=== PATIENT | male | born 2000 | race Hispanic/Latino ===

== ENCOUNTER 2021-10-28 09:50 | Emergency (ER) | payer OTHER, SELFPAY ==
[2021-10-28 10:00] VITALS: BP 124/57; PULSE 68; RESP 18; TEMP 36.2; O2SAT 99; BMI 28.2
--- NOTE | 2021-10-28 10:33 | ED.GENADULT ---
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 He states that he is having issues with both of his ears but right is worse than the left. He did try some peroxide over the past 24 hours. He can hear fine out of his left ear but his right ear is muffled. Has had issues with cerumen impaction in the past. Related Data Previous Rx's Medication Instructions Recorded carbamide peroxide 6.5 % ear drops 3 drp EAR-BOTH BID 4 Days #15 ml 10/28/21 (Debrox) Allergies Allergy/AdvReac Type Severity Reaction Status Date / Time No Known Drug Allergies Allergy Verified 10/28/21 10:03 Review of Systems ENT Ears, Nose, Mouth, and Throat: Reports system reviewed and no additional complaints, except as documented and Reports as per HPI Respiratory Respiratory: Reports as per HPI and Reports system reviewed and no additional complaints, except as documented Integumentary/Breasts Skin/Breast: Reports system reviewed and no additional complaints, except as documented Hematologic/Lymphatic On Anticoagulants: No Patient History Medical History Cerumen impaction Social History Smoking Status: Never smoker Smoking Status: Never smoker alcohol intake frequency: 0-2 drinks per day Substance Use Type: does not use Exam Initial Vital Signs Initial Vital Signs: Vital Signs Temperature 97.2 F L 10/28/21 10:00 Pulse Rate 68 10/28/21 10:00 Respiratory Rate 18 10/28/21 10:00 Blood Pressure 124/57 L 10/28/21 10:00 Pulse Oximetry 99 10/28/21 10:00 HENMT Head: normal to inspection and normocephalic Ears: other (Bilateral cerumen impaction) Face and sinus: normal facial exam Resp Effort & Inspection: normal respiratory effort Cardio Rate: regular rate Skin General: no rashes or lesions noted Neuro General: patient alert, patient awake and moves all extremities Extrem General: normal to inspection Psych Appearance: grossly normal and well kempt Course Vital Signs Vital signs: Vital Signs - 8 hr 10/28/21 10:00 Temperature 97.2 F L Pulse Rate 68 Respiratory Rate 18 Blood Pressure 124/57 L Pulse Oximetry 99 Medical Decision Making MDM Narrative Medical decision making narrative: Attempted to remove some cerumen in the right ear and I was able to remove some of but there was still cerumen very posterior. Unsafe to remove it here in the ER. Will send home with debrox and instructions to follow-up with his medical department to discuss the indications for referral to see ear nose and throat. He did express understanding agreement. Discharge Plan Departure Patient Disposition: Home Clinical Impression: Bilateral impacted cerumen Instructions: Cerumen Impaction Activity Restrictions/Additional Instructions: I recommend that he use the medication as directed. Contact your medical department as you may need a referral to see ear nose and throat. Return to the emergency department for any new symptoms Prescriptions: New Debrox 6.5 % drops 3 drp EAR-BOTH BID 4 Days Qty: 15 0RF
== END 2021-10-28 11:05 | disposition home or self-care (01) ==
PROVIDERS: Emergency Provider Emergency Medicine
DX: H61.23 Impacted cerumen, bilateral (principal)
CPT/HCPCS: 99281

== ENCOUNTER 2021-11-03 16:59 | Emergency (ER) | payer OTHER, SELFPAY ==
[2021-11-03 17:17] VITALS: BP 133/92; PULSE 84; RESP 14; TEMP 36.4; O2SAT 97
== END 2021-11-03 18:51 | disposition left against medical advice (07) ==
PROVIDERS: Emergency Provider Emergency Medicine
DX: H61.20 Impacted cerumen, unspecified ear (principal)
CPT/HCPCS: 99281

== ENCOUNTER 2022-04-12 00:44 | Emergency (ER) | payer OTHER, SELFPAY ==
[2022-04-12 01:11] VITALS: BP 144/81; PULSE 96; RESP 16; TEMP 37.5; O2SAT 98; BMI 30.1
--- NOTE | 2022-04-12 03:23 | ED_ITS ---
HPI - Skin/Abscess/Foreign Bdy General Chief complaint: Skin/Abscess/Foreign Body Stated complaint: ABSCESS ON PUBIC AREA Time Seen by Provider: 04/12/22 03:09 Source: patient Mode of arrival: Ambulatory History of Present Illness HPI narrative: Otherwise healthy 21-year-old young man noted small abscess midline superior portion of pubic air anteriorly and concerned because it was increasing in pain and worried that he may have a sexually transmitted infection. He has had no fevers, no drainage from the wound. He has had no abdominal pain, vomiting, diarrhea or penile discharge. No dysuria or flank pain. Related Data Previous Rx's Medication Instructions Recorded sulfamethoxazole 800 1 tab PO BID #10 tabs 04/12/22 mg-trimethoprim 160 mg tablet (Bactrim DS) Allergies Allergy/AdvReac Type Severity Reaction Status Date / Time No Known Drug Allergies Allergy Verified 10/28/21 10:03 Review of Systems Review of Systems Narrative: Remainder of complete review of systems is otherwise unremarkable except for that included in the HPI. Patient History Medical History Cerumen impaction Social History Smoking Status: Never smoker Smoking Status: Never smoker alcohol intake frequency: 0-2 drinks per day Substance Use Type: does not use Exam Initial Vital Signs Initial Vital Signs: Vital Signs Temperature 99.5 F 04/12/22 01:11 Pulse Rate 96 H 04/12/22 01:11 Respiratory Rate 16 04/12/22 01:11 Blood Pressure 144/81 H 04/12/22 01:11 Pulse Oximetry 98 04/12/22 01:11 Oxygen Delivery Method 04/12/22 01:11 General: Alert appropriate in no acute distress Respiratory: Able to speak in full sentences, no obvious respiratory distress Skin: No obvious rashes, warm and dry Neurologic: Grossly intact no obvious asymmetries or abnormalities Psych: appropriate insight and affect, cooperative Lower abdomen/upper pubic area has a 1 cm x 3 cm area of fluctuance that looks like it is about to spontaneously drain. Using an 18 gauge needle the area is perforated and approximately 5 cc of purulent drainage is returned without complication. A dressing was applied. Course Vital Signs Vital signs: Vital Signs - 8 hr 04/12/22 01:11 Temperature 99.5 F Pulse Rate 96 H Respiratory Rate 16 Blood Pressure 144/81 H Pulse Oximetry 98 Oxygen Delivery Method Room Air MDM - Skin/Abscess/Foreign Bdy MDM Narrative Medical decision making narrative: Small perifollicular abscess over the upper pubic area/mons. Minor amount of discharge and still some inferior induration. The drainage was sent for culture and Gram stain. He is placed on 5 days of Septra and reassured that he does not have a sexually transmitted infection but does need to continue using condoms. Questions are answered he is safe for home discharge Discharge Plan Departure Patient Disposition: Home Clinical Impression: Abscess of skin or subcutaneous tissue Instructions: DI for Skin Abscess Activity Restrictions/Additional Instructions: Thank you for coming in today This is a small abscess that developed around the pubic care. This is not a se xually transmitted infection. We were able to get the majority of the pus out in the emergency department but there is still a bit of swelling. I do want you to complete 5 additional days of antibiotics. I have given you a prescription that will need to be filled tomorrow. If there is more drainage from the area that is okay. If you notice increasing redness, pain or new findings you do need to return to the ER. Prescriptions: New sulfamethoxazole-trimethoprim [Bactrim DS] 800-160 mg tablet 1 tab PO BID Qty: 10 0RF
--- NOTE | 2022-04-12 03:25 | PC.NURSE ---
abscess evaluated and culture obtained per Dr Ball
== END 2022-04-12 03:45 | disposition home or self-care (01) ==
PROVIDERS: Emergency Provider Emergency Medicine
DX: L02.818 Cutaneous abscess of other sites (principal)
CPT/HCPCS: 87070; 87075; 87205; 99281; 99282

== ENCOUNTER 2022-05-20 22:36 | Emergency (ER) | payer OTHER, SELFPAY ==
[2022-05-20 22:37] VITALS: BP 131/68; PULSE 94; RESP 18; TEMP 36.5; O2SAT 97; BMI 29.9
== END 2022-05-21 00:03 | disposition left against medical advice (07) ==
PROVIDERS: Emergency Provider Emergency Medicine
CPT/HCPCS: 99281

== ENCOUNTER 2022-06-16 20:25 | Emergency (ER) | payer OTHER, SELFPAY ==
[2022-06-16 20:29] VITALS: BP 143/65; PULSE 90; RESP 18; TEMP 36.6; O2SAT 97; BMI 30.1
--- NOTE | 2022-06-16 23:10 | PC.NURSE ---
Reports big toenail has been ingrown for about two weeks and third toe is now showing the same signs.
[2022-06-16] MEDS: HYDROCODONE/ACET 5/325 PREPACK 1 BOTTLE MISC (23:54)
[2022-06-16 23:59] VITALS: BP 137/67; PULSE 95; RESP 18; O2SAT 96
--- NOTE | 2022-06-17 03:57 | ED_ITS ---
HPI - Extremity Problem General Chief complaint: Extremity Problem,Nontraumatic Stated complaint: has 2 ingrown toenails Time Seen by Provider: 06/16/22 23:13 Source: patient Mode of arrival: Ambulatory History of Present Illness HPI Narrative: 21-year-old male nonsmoker with no significant or chronic medical history presents with a chief complaint of a painful right great toe and concern for an ingrown toenail. He denies any systemic complaints such as fever chills nor nausea or vomiting. Denies any traumatic injury. He denies any history of the same. He states that he has been having some increasing redness and pain at the medial edge of his right great toe for the past few weeks and is concerned because he is flying to the [facility] for a music festival in a few hours and wanted to get it looked at. His pain increases with walking and with palpation. He has taken no medications in performed no interventions thus far Related Data Previous Rx's Medication Instructions Recorded sulfamethoxazole 800 1 tab PO BID #10 tabs 04/12/22 mg-trimethoprim 160 mg tablet (Bactrim DS) Allergies Allergy/AdvReac Type Severity Reaction Status Date / Time No Known Drug Allergies Allergy Verified 10/28/21 10:03 Review of Systems Review of Systems Narrative: GENERAL: Denies chills, fatigue, malaise, fever, sweats. HEENT: Denies sinus pain, ear pain, sore throat, difficulty swallowing, dizziness. RESPIRATORY: Denies dyspnea, cough, wheezing, hemoptysis, sputum. CARDIOVASCULAR: Denies chest pain, palpitations, orthopnea, edema, GASTROINTESTINAL: Denies nausea, vomiting, abdominal pain, diarrhea, constipation, melena. : Denies dysuria, frequency, incontinence, hematuria, urinary retention. MUSCULOSKELETAL: See HPI SKIN: Denies rash, skin lesions, or other NEUROLOGIC: Denies weakness, headache, numbness, change in speech, confusion, seizures, incoordination. PSYCHIATRIC: No concerning psychosocial issues. 12 point review of systems is negative except for those stated above Patient History Medical History Cerumen impaction Social History Smoking Status: Never smoker Smoking Status: Never smoker alcohol intake frequency: 0-2 drinks per day Substance Use Type: does not use Exam Narrative Exam Narrative: GEN: AOx3 and in mild distress EYES: Pupils are equal, round, and reactive to light and accommodation. Extraoccular muscles are intact bilaterally. There is no subconjunctival hemorrhage or exudate. CHEST: Lungs are clear to auscultation bilaterally and free of wheezes, rales, or rhonchi. Heart rate is regular rhythm, there are no murmurs, clicks, rubs, or gallops. There is no chest wall tenderness. ABD: Abdomen is soft and nontender. There is no guarding or rebound. Bowel sounds are normal in all 4 quadrants. There is no mass or organomegaly. EXT: Minimal redness tenderness at medial edge of right great toe with some minimal suggestion of ingrown toenail, no paronychia, no nail fold involvement, no evidence of felon, no drainage or exudate. SKIN: Warm, pink, and dry. No erythema or rash Initial Vital Signs Initial Vital Signs: Vital Signs Temperature 98 F 06/16/22 20:29 Pulse Rate 90 06/16/22 20:29 Respiratory Rate 18 06/16/22 20:29 Blood Pressure 143/65 H 06/16/22 20:29 Pulse Oximetry 97 06/16/22 20:29 Oxygen Delivery Method 06/16/22 20:29 Course Orders Ordered: Discontinued Medications Hydrocodone Bitart/Acetaminophen (Hydrocodone/Acet 5/325 Prepack) 1 bottle MISC SEEINSTR ONE Stop: 06/16/22 23:49 Last Admin: 06/16/22 23:54 Dose: 1 bottle Documented By: SB Vital Signs Vital signs: Vital Signs - 8 hr 06/16/22 20:29 06/16/22 23:59 Temperature 98 F Pulse Rate 90 95 H Respiratory Rate 18 18 Blood Pressure 143/65 H 137/67 Pulse Oximetry 97 96 Oxygen Delivery Method Room Air Room Air MDM - Extremity (Nontraumatic) MDM Narrative Medical decision making narrative: Patient likely has a very early in mild ingrown toenail. We discussed at length the pros and cons of any procedure or interventions and agree that given its early presentation and his planned to be on his feet a significant amount of time the concern for pain, bleeding possible infection in the aftermath of procedure is not worth it, he would prefer to do Epsom soaks and arrange follow- up upon his return Discharge Plan Departure Patient Disposition: Home Clinical Impression: Ingrown nail of great toe of right foot Instructions: DI for Ingrown Toenail Activity Restrictions/Additional Instructions: *You have been diagnosed with [ingrown toenail right great toe] *What to do: *Please consider soaks in warm water with Epsom salts multiple times per day for the next 7 days *Please follow up with your primary care provider in 7-10 days, call for an appointment. Let them know you were seen in the Emergency Department and that we ask that you be seen in follow up. We will electronically transmit a record of today's note if your PCP is in our system *Return to Emergency Department if you should have any new, worsening or concerning symptoms Prescriptions: No Action sulfamethoxazole-trimethoprim [Bactrim DS] 800-160 mg tablet 1 tab PO BID Qty: 10 0RF Referrals: ProviderPatrica [Primary Care Provider] - Visit Report Forms: Patient Portal/API
== END 2022-06-17 00:01 | disposition home or self-care (01) ==
PROVIDERS: Emergency Provider Emergency Medicine
DX: L60.0 Ingrowing nail (principal)
CPT/HCPCS: 99281